=== PATIENT | female | born 1960 | race Caucasian/White ===

== ENCOUNTER 2018-02-13 15:27 | Emergency (ER) | payer OTHER ==
[~2018-02-13] VITALS: Ht 177.8 cm; Wt 111.9 kg
[~2018-02-13 15:27] MED LIST: ALTOPREV20 MG PO; AMILORIDE HCL5 MG PO; ASPIRIN EC325 MG PO; AVALIDE 150/1 TABLET PO; CALCIUM + D3 E1 EACH PO; COUMADIN2.5 MG PO; COUMADIN5 MG PO; ENDOCET 5-3251 EACH PO; FLONASE16 G1 BOTH NARES; K-DUR10 MEQ PO; LOSARTAN POTASS50 MG PO; LOVASTATIN20 MG PO; LOVENOX120 MG/0.8 SC; MIDAMOR5 MG PO; NIRAVAM0.25 MG PO; POTASSIUM CHLO10 ME3 PO; POTASSIUM-9999 MG PO; PROTONIX40 MG PO; PROZAC20 MG PO; REGLAN10 MG PO; SENNA-TIME S T1 EACH PO; SYNTHROID100 MCG PO; SYNTHROID25 MCG PO; TYLENOL EXTRA500 MG PO; VIVELLE,ESTRAD0.1 MG TD; VIVELLE-DOT0.1 MG TD; XANAX0.5 MG PO
[2018-02-13 16:23] LABS: HEMATOCRIT 45.4 % (36.0-46.0); HEMOGLOBIN 15.1 G/DL (11.9-15.5); MCH 29.3 PG (29.0-34.0); MCHC 33.3 G/DL (30.0-36.0); MCV 88.2 FL (83-99); RBC DIS.WIDTH-CV 12.8 % (11.8-14.6); RBC DIS.WIDTH-SD 41.3 % (39-53); RED BLOOD COUNT 5.15 M/uL (3.80-5.20); WHITE BLOOD COUNT 5.4 K/uL (4.1-10.2)
[2018-02-13 16:35] LABS: CHLORIDE 106 mEq/L (99-109); POTASSIUM 4.2 mEq/L (3.7-5.4); SODIUM 140 mEq/L (136-147)
[2018-02-13 16:37] LABS: GLUCOSE 96 mg/dL (70-99)
[2018-02-13 16:41] LABS: GFR ESTIMATE (CALCULATED) > 59 mL/min/
[2018-02-13 16:42] LABS: UREA NITROGEN (BUN) 12 mg/dL (9-23)
[2018-02-13 16:45] LABS: TROP-I INTERPRETATION NEGATIVE; TROPONIN-I < 0.01 ng/mL (0.0-0.30)
[2018-02-13 16:58] LABS: PLAT.SUFFICIENCY ADEQUATE; PLATELET COUNT 233 K/uL (156-360)
[2018-02-13 20:08] LABS: TROP-I INTERPRETATION NEGATIVE; TROPONIN-I < 0.01 ng/mL (0.0-0.30)
[2018-02-13 21:46] VITALS: BP 150/90
== END 2018-02-13 21:48 | disposition home or self-care (01) ==
LOC: EME 15:27
PROVIDERS: Physician Assistant
DX: R20.2 Paresthesia of skin (principal); E53.8 Deficiency of other specified B group vitamins; K21.9 Gastro-esophageal reflux disease without esophagitis; F41.9 Anxiety disorder, unspecified; E78.5 Hyperlipidemia, unspecified; I10 Essential (primary) hypertension; E03.9 Hypothyroidism, unspecified; Z90.49 Acquired absence of other specified parts of digestive tract; Z90.710 Acquired absence of both cervix and uterus; Z96.652 Presence of left artificial knee joint; Z79.01 Long term (current) use of anticoagulants; Z88.6 Allergy status to analgesic agent; Z88.0 Allergy status to penicillin; Z88.8 Allergy status to other drugs, medicaments and biological substances
CPT/HCPCS: 71046; 80048; 82607; 84484; 85027; 93005; 99281; 99285; J3420